=== PATIENT | female | born 1955 | race Caucasian/White ===

== ENCOUNTER → 2017-03-23 | Outpatient (CLI) | payer OTHER | LOC: CIMAGING 08:45 | PROVIDERS: ATTEND Obstetrics & Gynecology | DX: N93.9 Abnormal uterine and vaginal bleeding, unspecified (principal) | CPT/HCPCS: 76856-PO ==

== ENCOUNTER 2017-10-28 09:28 | Emergency (ER) | payer OTHER ==
[2017-10-28 09:34] VITALS: RESP 16
--- NOTE | 2017-10-28 10:17 | EDPHY ---
H & P Time Seen by Provider: 10/28/17 09:59 HPI/ROS: CHIEF COMPLAINT: Left-sided facial pain, rash HISTORY OF PRESENT ILLNESS: 62-year-old female presents to the emergency department with concerns about painful lump to the left side of her cheek. She states symptoms started on Thursday night, 3 days ago and have persisted and now have gotten worse. She went to urgent care last night and they started her on clindamycin. She has been taking his medication as prescribed and presents now with worsening pain in her left cheek radiating now to her left ear. No visual changes. No tearing from the eye. No reported trauma. She thinks that this initially started because her glasses got bumped and caused either an abrasion or some irritation to the left side of her cheek. No dysphagia. Also has cough. No shortness of breath. No chest pain. ROS: Denies fever, blistering rash, pain in scalp Past Medical/Surgical History: Squamous cell carcinoma, OCD Social History: and lives in [place] Smoking Status: Never smoked Physical Exam: Afebrile and nontoxic-appearing. On examination the patient has a small erythematous palpable lump noted to her left zygomatic arch area. It is tender to palpate. There is no fluctuance. No pustule. No vesicle. There is no surrounding redness. No vesicular lesions noted. No lesions noted to her scalp. She does have pain with palpation both in the left pre and postauricular area. Nontender over the left mastoid bone however. Her neck is supple with anterior cervical lymphadenopathy palpated. There is no submandibular swelling. Her teeth appear to be in good repair. Lungs are clear to auscultation in all [place] with no wheezing, rhonchi or rales. Heart regular rate rhythm without murmur. Constitutional: Initial Vital Signs Temperature (C) 36.5 C 10/28/17 09:32 Heart Rate 52 L 10/28/17 09:32 Respiratory Rate 16 10/28/17 09:32 Blood Pressure 125/49 H 10/28/17 09:32 O2 Sat (%) 98 10/28/17 09:32 O2 Delivery Mode Room Air Allergies/Adverse Reactions: penicillin G [Penicillin G] Allergy (Severe, Verified 10/28/17 09:31) Hives Wheat Containing *RETIRED-05/31/12 Allergy (Severe, Verified 10/28/17 09:31) Abdominal Cramping Dairy Allergy (Severe, Uncoded 10/28/17 09:31) Abdominal Cramping Home Medications: Medication Instructions Recorded PROzac 11/28/09 traZODone HCL 11/28/09 Cephalexin [Keflex] 500 mg PO QID #28 cap 10/28/17 Clindamycin 10/28/17 Mupirocin 2% [Bactroban 2%] 15 gm TP TID 7 Days oint 10/28/17 Medical Decision Making ED Course/Re-evaluation: Clinically I think this patient likely has cellulitis. She did start clindamycin last night and I encouraged her to continue taking this. She does have a penicillin allergy which caused a rash. She does not know if she is taking Keflex in the past. She does not have any anaphylactic reaction to penicillin that she is aware of. She will be prescribed Keflex as well as Bactroban topical cream. I do not think this patient has herpes zoster. There is no vesicular lesions noted. I think the pain she is likely having in the pre and postauricular area is likely reactive lymphadenopathy from infection. I see no signs of orbital cellulitis. She has pain with palpation over the left inferior orbit overlying the area of redness. I encouraged warm compresses. She will take medication as prescribed and follow up with her primary care provider or return to the emergency department sooner if she develops fever or any other concerns. The case was discussed with Dr. Orquidea Sharma, secondary supervising physician, who did not directly evaluate the patient but agrees with treatment and plan. Differential Diagnosis: Including but not limited to cellulitis, herpes zoster, orbital cellulitis, dental infection Departure - Departure Disposition: Home, Routine, Self-Care Clinical Impression: Cellulitis of left external cheek Condition: Good Instructions: Cellulitis (ED) Additional Instructions: Continue clindamycin as prescribed. Keflex 500 mg 4 times daily for 1 week. Warm compresses for 15-20 minutes every 2-3 hours especially today and tomorrow. Topical Bactroban ointment as discussed. Return to the emergency department if you develop fever, increasing swelling or pain, or if you feel worse in any way. Referrals: Myah Medina MD [Primary Care Provider] - As per Instructions Prescriptions: Cephalexin [Keflex] 500 mg PO QID #28 cap Mupirocin 2% [Bactroban 2%] 15 gm TP TID 7 Days oint
[2017-10-28 11:12] VITALS: BP 125/67; PULSE 60; TEMP 98.1; O2SAT 97
== END 2017-10-28 11:11 | disposition home or self-care (01) ==
DX: L03.211 Cellulitis of face (principal)